=== PATIENT | male | born 1975 | race Caucasian/White ===

== ENCOUNTER 2019-01-18 10:38 | Inpatient (IN) | payer OTHER ==
[2019-01-18 11:15] LABS: #Basophils 0.1 thou/uL (0.0-0.2); #Eosinphils 0.1 thou/uL (0.0-0.7); #Lymphocytes 2.7 thou/uL (1.20-3.40); #Monocytes 0.9 thou/uL (0.11-0.59); #Neutrophils 7.4 thou/uL (1.40-6.50); %Basophils 0.5 % (0.0-1.0); %Eosinophils 0.8 % (0.0-10.0); %Monocytes 7.7 % (0.0-10.0); Mean Corpuscular HGB CONC 34.3 g/dL (32.0-36.0); Mean Corpuscular Hemoglobin 31.2 pg (27.0-31.0); Mean Platelet Volume 6.5 fL (7.4-10.4); Platelet Count 256 thou/uL (130-400); RBC Distribution Width 11.4 % (11.5-14.5); Red Blood Cell (RBC) Count 5.13 mill/uL (4.70-6.10); White Blood Cell (WBC) Count 11.1 thou/uL (4.8-10.8)
[2019-01-18] MEDS ORDERED: Ketorolac Tromethamine 30 MG/ML VIAL ONE (11:39)
[2019-01-18 11:44] LABS: ALT (SGPT) 46 U/L (8-55); AST (SGOT) 25 U/L (5-34); Albumin 4.7 g/dL (3.5-5.0); Alkaline Phosphatase 68 U/L (40-110); Anion Gap 12 mmol/L (10-20); BUN (Urea Nitrogen) 14 mg/dL (8.9-20.6); Bilirubin, Total 1.2 mg/dL (0.2-1.2); Calc. Creatinine Clearance 0 mL/min (70-130); Carbon Dioxide 28 mmol/L (22-29); Chloride 101 mmol/L (98-107); Estimated GFR-MDRD 63; Globulin 2.9 g/dL (2.4-3.5); Glucose 137 mg/dL (70-105); Lipase 20 U/L (8-78); Potassium 4.1 mmol/L (3.5-5.1); Protein, Total 7.6 g/dL (6.0-8.3); Sodium 137 mmol/L (136-145)
--- NOTE | 2019-01-18 12:24 | CT ---
CT ABDOMEN AND PELVIS WITH IV CONTRAST: HISTORY: Right upper quadrant and right lower quadrant abdominal pain. Dark urine. Intermittent nause a and dizziness. Congenital absence of right kidney COMPARISON: None FINDINGS: The lung bases are clear. A 2.4 cm peripherally calcified gallstone is present. There is fatty infilt ration of the liver without focal mass or abnormal biliary ductal dilatation. The spleen, pancreas, adrenal glands and left kidney are normal. The right kidney is absent consistent with history of ruby enital absence. No free air, free fluid or lymphadenopathy seen in the abdomen or pelvis. There are vascular calcific ations without evidence of aneurysmal dilatation of the abdominal aorta. No osteolytic or osteoblastic lesions are seen. The small bowel loops are not abnormally dilated. A normal-appearing a ppendix is present. IMPRESSION: 1. Fatty liver 2. Cholelithiasis 3. Congenital absence of right kidney 4. No evidence of appendicitis.
[2019-01-18 12:25] LABS: Bilirubin Negative (Negative); Blood, Urine Negative (Negative); Clarity Clear (Clear); Glucose, Urine (Dipstick) Normal (Negative); Leukocyte Negative Leu/uL (Negative); Nitrite Negative (Negative); Protein, Urine (Dipstick) Negative (Neg-Trace); Urobilinogen Normal mg/dL (Less than 2)
[2019-01-18] MEDS ORDERED: Morphine 4 MG/ML VIAL ONE ×3 (12:35→16:01)
[2019-01-18] MEDS ORDERED: Ondansetron PF 4 MG/2 ML Vial ONE ×3 (12:36→16:01)
--- NOTE | 2019-01-18 13:43 | ULT ---
Right upper quadrant ultrasound: 01/18/2019 COMPARISON: None HISTORY: Right upper quadrant pain TECHNIQUE: Multiplanar grayscale sonographic imaging of the right upper quadrant provided. FINDINGS: The hepatic parenchyma is heterogeneous and echogenic, consistent with hepatocellular disea se, such as steatosis. There is a 2.3 cm gallstone in the region of the gallbladder neck which may be lodged. The sonographe r reports a positive Buchanan's sign. There is mild gallbladder wall thickening measuring approximately 3 mm. No significant pericholecysti c fluid. The common bile duct measures approximately 6 mm, upper limits of normal. Right kidney is nonvisualiz ed. IMPRESSION: Prominent gallstone lodged within the region of the gallbladder neck with positive Buchanan 's sign and mild gallbladder wall thickening. Findings are concerning for acute cholecystitis.
[2019-01-18] MEDS ORDERED: Levofloxacin 500 mg/D5W 100 ml Premix Bag ONE ×2 (15:52→15:53)
[2019-01-18] MEDS ORDERED: hydrALAZINE 20 MG/ML VIAL SLOW IVP PRN ×2 (17:29→18:15)
[2019-01-18] MEDS ORDERED: Ondansetron PF 4 MG/2 ML Vial IVP PRN ×4 (17:29→18:15)
[2019-01-18] MEDS ORDERED: Ondansetron ODT 4 MG TAB PO PRN ×2 (17:29→18:15)
[2019-01-18] MEDS ORDERED: Morphine 4 MG/ML VIAL SLOW IVP PRN ×2 (17:29→18:15)
[2019-01-18] MEDS ORDERED: Morphine 2 MG/ML SYRINGE SLOW IVP PRN ×2 (17:29→18:15)
[2019-01-18] MEDS ORDERED: Sodium Chloride 0.9% 1,000 ML IV SCH (17:30)
[2019-01-18] MEDS ORDERED: Acetaminophen 1,000 MG in Premix Bag 1 BAG IVPB PRN ×2 (17:33→23:59)
[2019-01-18] MEDS ORDERED: Ondansetron ODT 8 MG TAB PO PRN ×2 (17:35→18:15)
[2019-01-18] MEDS ORDERED: Ondansetron ODT 8 MG TAB SL PRN ×2 (17:35→18:15)
[2019-01-18] MEDS ORDERED: Ketorolac Tromethamine 30 MG/ML VIAL IVP SCH ×3 (17:45→18:15)
[2019-01-18] MEDS ORDERED: Acetaminophen 1,000 MG in Premix Bag 1 BAG IVPB SCH ×2 (17:45→18:15)
[2019-01-18] MEDS: Sodium Chloride 0.9% 1,000 ML IV SCH (19:00)
[2019-01-18] MEDS ORDERED: Enoxaparin Sodium 40 MG/0.4 ML SYRINGE SC SCH ×2 (21:00)
[2019-01-18 21:53] VITALS: BMI 36.9
--- NOTE | 2019-01-18 21:57 | HP ---
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 emergency room with a white count of 11, hemoglobin 16. Liver function tests are normal. Ultrasound of abdomen and abdominal pelvic CAT scan ordered. These were done at 11:00 p.m. and 12:00 p.m., I was called at 3:00 p.m. CAT scan reveals cholelithiasis, congenital absence of the right kidney and a fatty liver. Abdominal ultrasound reveals cholelithiasis, sonographic positive Buchanan sign, normal bile duct caliber. ALLERGIES: NONE. TOBACCO: None. ALCOHOL: Rarely. MEDICATIONS: None routinely. PAST SURGICAL HISTORY: Noncontributory. PAST MEDICAL HISTORY: Noncontributory. REVIEW OF SYSTEMS: Ten-point noncontributory. PHYSICAL EXAMINATION: VITAL SIGNS: Heart rate 74, respiratory rate 18, blood pressure 130/70. HEAD, EARS, EYES, NOSE AND THROAT: Unremarkable. Sclerae are nonicteric. LUNGS: Clear to auscultation. CARDIAC: Regular rate and rhythm without murmur or gallop. ABDOMEN: Soft, tenderness in the right upper quadrant. No guarding or rebound. EXTREMITIES: Unremarkable. ASSESSMENT AND PLAN: Acute cholecystitis. We would recommend laparoscopic video cholecystectomy. Unfortunately about 3:00 p.m., there were no OR rooms available to late this evening. Therefore, instead of an outpatient he will have to be admitted tonight and this will be performed tomorrow. He is in too much pain to go home. We will plan Levaquin overnight. Full liquids tonight, n.p.o. after midnight, and laparoscopic cholecystectomy tomorrow. Risks of infection, bleeding, visceral, and biliary injury explained, he consents. Job ID: [id number]
[2019-01-18] MEDS: Ketorolac Tromethamine 30 MG/ML VIAL IVP SCH (23:04)
[2019-01-19] MEDS: Sodium Chloride 0.9% 1,000 ML IV SCH ×2 (01:19→09:53)
[2019-01-19] MEDS: Ketorolac Tromethamine 30 MG/ML VIAL IVP SCH ×2 (05:13→12:07)
[2019-01-19 08:17] VITALS: BP 110/61; TEMP 98.5
[2019-01-19] MEDS ORDERED: Levofloxacin 500 mg/D5W 100 ml Premix Bag ONE (12:34)
[2019-01-19] MEDS ORDERED: Fentanyl 250 MCG/5 ML VIAL ONE (13:14)
[2019-01-19] MEDS ORDERED: Bupivacaine HCl 0.5%/Epinephrine 1:200,000/PF 30 ml Vial ONE (13:18)
[2019-01-19] MEDS ORDERED: Promethazine HCl 25 MG/ML VIAL IM PRN (14:07)
[2019-01-19] MEDS ORDERED: Promethazine HCl 25 MG/ML VIAL SLOW IVP PRN (14:07)
[2019-01-19] MEDS ORDERED: Ibuprofen 600 MG TAB PO PRN (14:52)
[2019-01-19] MEDS ORDERED: traMADol HCl 50 MG TAB PO PRN ×2 (14:52)
[2019-01-19] MEDS ORDERED: Acetaminophen 500 MG TAB PO PRN (14:52)
[2019-01-19] MEDS ORDERED: Fentanyl 100 MCG/2 ML VIAL ONE (15:08)
[2019-01-19] MEDS ORDERED: Promethazine HCl 25 MG/ML VIAL ONE (15:11)
--- NOTE | 2019-01-19 19:49 | DIS ---
DATE OF ADMISSION: 01/18/2019 DATE OF DISCHARGE: 01/19/2019 DISCHARGE DIAGNOSIS: Acute on chronic cholecystitis, large stone obstructing the gallbladder outlet. IMAGING: In the emergency room, CAT scan of the abdomen and pelvis and ultrasound revealing acute cholecystitis and large stone obstructing gallbladder outlet. Liver function tests normal. PROCEDURES: On 01/19/2019, laparoscopic video cholecystectomy, acute cholecystitis appreciated. DISCHARGE MEDICATIONS: 1. Ultram p.r.n. pain. 2. [id number] Tylenol and ibuprofen. 3. Levaquin 500 a day for 5 days. 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 It was associated with nausea and radiation to his right flank. He underwent the above radiological imaging studies confirming cholecystitis and at 2 o'clock in the afternoon, there was no OR space available for cholecystectomy, thus he was admitted overnight and underwent cholecystectomy 24 hours later and is discharged home postoperatively. Job ID: [id number]
--- NOTE | 2019-01-19 20:38 | OP ---
DATE OF PROCEDURE: 01/19/2019 PREOPERATIVE DIAGNOSES: Acute on chronic cholecystitis, cholelithiasis. POSTOPERATIVE DIAGNOSES: Acute on chronic cholecystitis, cholelithiasis. PROCEDURE PERFORMED: Laparoscopic video cholecystectomy. ANESTHESIA: General, local 0.5% Marcaine with epinephrine. DESCRIPTION OF PROCEDURE: The patient was taken to the operating room where under general anesthesia, the abdomen was clipped of hair, prepared with ChloraPrep and draped in routine fashion. Local anesthetic was infiltrated in the skin and subcutaneous tissue about each port site. Infraumbilical incision was made. Pneumoperitoneum to 15 mmHg was obtained with a Veress needle, replaced with a 5 port, video laparoscope was inserted. Right subxiphoid incision was made and 11 port was placed. Right subcostal incision was made at midclavicular and anterior axillary line, and 5 ports placed. Liver appeared to be normal. Gallbladder acutely inflamed, edematous, difficult to grasp. Fundus was grasped at the cephalad. There were omental adhesions, taken down using cautery for hemostasis. Infundibulum was identified, grasped. There was a large stone obstructing the gallbladder outlet. Cystic artery and duct were dissected free. Critical view was obtained. Cystic artery and duct were double clipped proximally, divided, and gallbladder was dissected free from its inflammatory attachments to the liver bed using cautery, obtaining good hemostasis of the gallbladder and large obstructing gallstone was removed. Gallbladder and gallstones were submitted to Pathology. Good hemostasis was ensured with cautery. Irrigant and pneumoperitoneum were evacuated. All instruments were removed. All skin incisions were approximated with interrupted subdermal 4-0 Monocryl and Oral glue applied. Subxiphoid fascia was approximated with 0 Vicryl. Job ID: [id number]
== END 2019-01-19 19:24 | disposition home or self-care (01) | DRG 418 ==
LOC: ERS 10:38 → SJJU 18:15
PROVIDERS: ADMIT Specialist; ATTEND Specialist
PROC: 0FT44ZZ Resection of Gallbladder, Percutaneous Endoscopic Approach (ICD-10-PCS; principal; 2019-01-19)
DX: K80.13 Calculus of gallbladder with acute and chronic cholecystitis with obstruction (principal); Q60.0 Renal agenesis, unilateral
CPT/HCPCS: 36415; 74177; 76705; 80053; 81003; 83690; 84484; 85025; 93005; J0131; J0670; J1650; J1885; J1956; J2270; J2405; J2550; J3010

== ENCOUNTER 2019-03-10 11:15 | Emergency (ER) | payer OTHER ==
[2019-03-10] MEDS ORDERED: Ibuprofen 200 MG TAB ONE (11:49)
--- NOTE | 2019-03-10 12:37 | RAD ---
XR Chest 1 View Portable HISTORY: Cough, fever COMPARISON: None FINDINGS: The heart size is normal. The lungs are well expanded without focal areas of consolidation, pneumothorax or pleural effusions. IMPRESSION: No radiographic evidence of acute cardiopulmonary process.
== END 2019-03-10 13:14 | disposition home or self-care (01) ==
LOC: ERS 11:15
DX: J06.9 Acute upper respiratory infection, unspecified (principal)
CPT/HCPCS: 71045; 87804

== ENCOUNTER 2021-07-02 09:37 | Emergency (ER) | payer OTHER ==
[2021-07-02 10:21] LABS: #Basophils 0.1 thou/uL (0.0-0.2); #Lymphocytes 2.5 thou/uL (1.20-3.40); #Monocytes 0.6 thou/uL (0.11-0.59); #Neutrophils 4.4 thou/uL (1.40-6.50); %Eosinophils 0.6 % (0.0-10.0); %Lymphocytes 32.2 % (21.0-51.0); %Monocytes 7.8 % (0.0-10.0); %Neutrophils 58.4 % (42.0-75.0); Hemoglobin 16.3 g/dL (14.0-18.0); Mean Corpuscular HGB CONC 33.7 g/dL (32.0-36.0); Mean Corpuscular Hemoglobin 31.4 pg (27.0-31.0); Mean Corpuscular Volume 93.3 fL (78.0-98.0); Mean Platelet Volume 6.3 fL (7.4-10.4); Platelet Count 272 thou/uL (130-400); RBC Distribution Width 11.8 % (11.5-14.5); Red Blood Cell (RBC) Count 5.17 mill/uL (4.70-6.10); White Blood Cell (WBC) Count 7.6 thou/uL (4.8-10.8)
[2021-07-02 12:23] LABS: Albumin 4.2 g/dL (3.5-5.0)
[2021-07-02 12:24] LABS: Chloride 106 mmol/L (98-107); Potassium 4.9 mmol/L (3.5-5.1); Sodium 136 mmol/L (136-145)
[2021-07-02 12:25] LABS: Calcium 8.8 mg/dL (7.8-10.44); Glucose 114 mg/dL (70-105)
[2021-07-02 12:26] LABS: Globulin 2.7 g/dL (2.4-3.5); Protein, Total 6.9 g/dL (6.0-8.3)
[2021-07-02 12:27] LABS: Anion Gap 16 mmol/L (10-20); Bilirubin, Total 0.8 mg/dL (0.2-1.2); Carbon Dioxide 19 mmol/L (22-29)
[2021-07-02 12:28] LABS: Alkaline Phosphatase 66 U/L (40-110)
[2021-07-02 12:29] LABS: Calc. Creatinine Clearance 0 mL/min (70-130)
[2021-07-02 12:30] LABS: BUN (Urea Nitrogen) 11 mg/dL (8.9-20.6)
[2021-07-02 12:31] LABS: ALT (SGPT) 70 U/L (8-55); AST (SGOT) 38 U/L (5-34); CK (CPK) 263 U/L (30-200)
[2021-07-02 12:32] LABS: Troponin I Less than 0.010 ng/mL (< 0.028)
[2021-07-02] MEDS ORDERED: Iopamidol-370 76% 500 ML 1 ML ONE (14:18)
== END 2021-07-02 13:00 | disposition home or self-care (01) ==
LOC: ERS 09:37
DX: R07.89 Other chest pain (principal); R20.2 Paresthesia of skin
CPT/HCPCS: 36415; 71045; 71275; 80053; 82550; 83835; 83880; 84484; 85025; 93005; 94760; Q9967